=== PATIENT | female | born 1995 | race Caucasian/White ===

== ENCOUNTER 2022-03-15 09:40 | Emergency (ER) | payer OTHER ==
[~2022-03-15] VITALS: Ht 165.1 cm; Wt 79.0 kg
[2022-03-15 09:43] VITALS: BP 128/58
[2022-03-15] MEDS ORDERED: FAMOTIDINE 20MG TABLET PO ONE (10:45)
[2022-03-15] MEDS ORDERED: METHYLPREDNISOLONE SOD SUCC 125 MG/2 ML VIAL IM ONE (10:45)
[2022-03-15] MEDS ORDERED: DIPHENHYDRAMINE 25MG CAPSULE PO NR (11:15)
[2022-03-15] MEDS ORDERED: P50 PO (11:38)
[2022-03-15] MEDS ORDERED: FAMO40TA7 PO (11:38)
[2022-03-15] MEDS ORDERED: DIPH25CA83 PO (11:38)
== END 2022-03-15 12:24 | disposition home or self-care (01) ==
LOC: ER 09:40
DX: L50.0 Allergic urticaria (principal)
CPT/HCPCS: 81025; 96372; 99283; J2930; Q0163